=== PATIENT | male | born 1995 | race American Indian/Alaskan Native ===

== ENCOUNTER 2016-04-13 16:42 | Emergency (ER) | payer SELFPAY ==
[2016-04-13] MEDS ORDERED: TYLENOL #3 PO ONE (19:40)
[2016-04-13] MEDS ORDERED: XYLOCAINE 2% INFILTRATI ONE (19:42)
--- NOTE | 2016-04-13 19:45 | Emergency Department Report ---
- General Chief Complaint: Laceration/Recheck/Suture Stated Complaint: 2 IN LAC R FOREARM/SUTURE NEEDED Time Seen by Provider: 04/13/16 19:36 Source: patient Mode of arrival: Ambulatory Limitations: No Limitations - History of Present Illness Initial Comments: 20-year-old male who presents to ED complaining of arm pain secondary to laceration. Patient states he was jumping over a chain link fence, got caught and fell and sustained some lacerations his right arm as well as his right index finger. Patient states this incident happened about 4 hours ago. Patient states ambulance dressed the wound to stop the bleeding. He states he is up to date on his tetanus. Patient states he had a similar laceration on his abdomen earlier this year. Patient denies any fever/chills/nausea/vomiting/any other problems Extremity Location: Right: Arm Place: home Patient Tetanus UTD: Yes - Related Data Previous Rx's Medication Instructions Recorded Last Taken Type Cephalexin [Keflex] 500 mg PO Q8HR #20 cap 04/13/16 Unknown Rx Ibuprofen [Motrin 800 MG tab] 800 mg PO Q8HR #30 tablet 04/13/16 Unknown Rx Neomycn/Baci Zn/Pmyx Bs/Pramox 1 applic TP TID #1 tube 04/13/16 Unknown Rx [Triple Antibiotic Plus Ointmnt] Allergies Allergy/AdvReac Type Severity Reaction Status Date / Time Ants AdvReac Swelling Uncoded 04/13/16 19:18 ED Review of Systems ROS: Stated complaint: 2 IN LAC R FOREARM/SUTURE NEEDED Other details as noted in HPI Constitutional: denies: chills, fever Eyes: denies: eye pain, eye discharge, vision change ENT: denies: ear pain, throat pain, dental pain, hearing loss, congestion Respiratory: denies: cough, shortness of breath, wheezing Cardiovascular: denies: chest pain, palpitations Endocrine: no symptoms reported Gastrointestinal: denies: abdominal pain, nausea, vomiting, diarrhea Genitourinary: denies: urgency, dysuria, frequency Musculoskeletal: denies: back pain, joint swelling, arthralgia, myalgia Skin: other (laceration on the right lower arm and third finger). denies: rash , lesions Neurological: denies: headache, weakness, numbness, paresthesias, confusion, abnormal gait Psychiatric: denies: anxiety, depression Hematological/Lymphatic: denies: easy bleeding, easy bruising ED Past Medical Hx - Past Medical History Previous Medical History?: No - Surgical History Past Surgical History?: No - Social History Smoking Status: Current Some Day Smoker Substance Use Type: None, Alcohol - Medications Home Medications: Home Medications Medication Instructions Recorded Confirmed Last Taken Type Cephalexin [Keflex] 500 mg PO Q8HR #20 cap 04/13/16 Unknown Rx Ibuprofen [Motrin 800 MG tab] 800 mg PO Q8HR #30 tablet 04/13/16 Unknown Rx Neomycn/Baci Zn/Pmyx Bs/Pramox 1 applic TP TID #1 tube 04/13/16 Unknown Rx [Triple Antibiotic Plus Ointmnt] ED Physical Exam - General Limitations: No Limitations General appearance: alert, in no apparent distress - Head Head exam: Present: atraumatic, normocephalic - Eye Eye exam: Present: normal appearance, PERRL, EOMI - ENT ENT exam: Present: mucous membranes moist - Neck Neck exam: Present: normal inspection - Respiratory Respiratory exam: Present: normal lung sounds bilaterally. Absent: respiratory distress, wheezes, rales, rhonchi - Cardiovascular Cardiovascular Exam: Present: regular rate, normal rhythm. Absent: systolic murmur, diastolic murmur, rubs, gallop - GI/Abdominal GI/Abdominal exam: Present: soft, normal bowel sounds. Absent: distended, tenderness, guarding, rebound - Rectal Rectal exam: Present: deferred - Extremities Exam Extremities exam: Present: normal inspection - Back Exam Back exam: Present: normal inspection, full ROM. Absent: tenderness, CVA tenderness (R), CVA tenderness (L) - Neurological Exam Neurological exam: Present: alert, oriented X3, CN II-XII intact, normal gait, reflexes normal. Absent: motor sensory deficit - Psychiatric Psychiatric exam: Present: normal affect, normal mood - Skin Skin exam: Present: warm, dry, normal color, other (laceration to right anterior arm medially). Absent: rash, erythema, urticaria, vesicles - Expanded Skin Exam Expanded Type of lesion: Present: laceration (10 cm linear laceration). Absent: foreign body ED Course Vital Signs 04/13/16 17:13 Temperature 98.4 F Pulse Rate 76 Respiratory 16 Rate Blood Pressure 143/75 O2 Sat by Pulse 98 Oximetry - Laceration /Wound Repair Right Lower Anterior Medial Proximal Arm Wound Location: upper extremity (right anterior arm) Wound Length (cm): 10 Wound's Depth, Shape: into muscle, linear Wound Explored: no foreign body removed Irrigated w/ Saline (ccs): 500 Betadine Prep?: Yes Anesthesia: 1% Lidocaine Volume Anesthetic (ccs): 10 Wound Repaired With: sutures Suture Size/Type: 4:0, nylon Number of Sutures: 7 (horizontal mattress sutures) Layer Closure?: No Sterile Dressing Applied?: Yes Right Anterior Distal Palm Finger Wound Location: upper extremity (right anterior index finger) Wound Length (cm): 2 Wound's Depth, Shape: superficial, linear Wound Explored: no foreign body removed Irrigated w/ Saline (ccs): 300 Betadine Prep?: Yes Anesthesia: 1% Lidocaine Volume Anesthetic (ccs): 6 Wound Repaired With: sutures Suture Size/Type: 5:0, proline Number of Sutures: 8 Layer Closure?: No Sterile Dressing Applied?: Yes ED Medical Decision Making - Medical Decision Making 1-year-old male presents with multiple laceration to R arm and index finger. Vital signs stable. Patient alert and oriented 3 in no distress ED Course: Patient received 2 tablets of Tylenol 3. No TD booster was administered a tetanus patient states he is up-to-date ARM: The wound was prepped and draped in sterile fashion. Anesthesia was achieved with 10 mL of 2% lidocaine. The wound was irrigated with 500cc NS and explored. There were no foreign bodies. The wound was reapproximated in 1 layer suing with 5-0 monofilament sutures in the dermis with horizontal mattress sutures percutaneously. There was excellent reapproximation of the wound edges. INDEX FINGER:The wound was prepped and draped in sterile fashion. Anesthesia was achieved with 6 mL of 2% lidocaine using a digital block. The wound was irrigated with 300cc NS and explored. There were no foreign bodies. The wound was reapproximated in 1 layer suing with 5-0 monofilament sutures in the dermis with 7 interrupted sutures percutaneously. The patient tolerated the procedure without complication. Antibiotics prescription given. Discussed to take antibiotics as prescribed. Discussed to take Motrin as needed for pain. Discussed to follow up with primary care physician. Discussed to return to ED or primary care physician for removal of some stitches in 10-14 days. Critical care attestation.: If time is entered above; I have spent that time in minutes in the direct care of this critically ill patient, excluding procedure time. ED Disposition Clinical Impression: Laceration of arm, right, multiple sites Disposition: DISCHARGED TO HOME OR SELFCARE Is pt being admited?: No Does the pt Need Aspirin: No Condition: Stable Instructions: Suture Care (ED), Laceration (ED), Finger Laceration (ED) Additional Instructions: Return to clinic or ED in 10-14 days for suture removal Prescriptions: Cephalexin [Keflex] 500 mg PO Q8HR #20 cap Ibuprofen [Motrin 800 MG tab] 800 mg PO Q8HR #30 tablet Neomycn/Baci Zn/Pmyx Bs/Pramox [Triple Antibiotic Plus Ointmnt] 1 applic TP TID #1 tube Referrals: PRIMARY CARE, [Primary Care Provider] - [facility] - 3-5 Days [facility] [Outside] - 3-5 Days [facility] [Outside] - 3-5 Days [facility] [Outside] - 3-5 Days Forms: Work/School Release Form(ED) Time of Disposition: 22:10
[2016-04-13] MEDS ORDERED: NACL 0.9% IR ONE ×2 (20:00→20:37)
[2016-04-13] MEDS ORDERED: NACL 0.9% 500 ML IRRIGATION ONE (20:00)
[2016-04-13] MEDS ORDERED: NACL 0.9% 500 ML IR ONE ×2 (20:06→20:26)
[2016-04-13] MEDS ORDERED: TRIPLE ANTIBIOTIC TP ONE (21:15)
[2016-04-13 22:37] VITALS: BP 103/69
== END 2016-04-13 22:12 | disposition home or self-care (01) ==
LOC: ED 16:42
DX: S41.111A Laceration without foreign body of right upper arm, initial encounter (principal); S61.210A Laceration without foreign body of right index finger without damage to nail, initial encounter; F17.200 Nicotine dependence, unspecified, uncomplicated; Z91.09 Other allergy status, other than to drugs and biological substances; W45.8XXA Other foreign body or object entering through skin, initial encounter; Y93.89 Activity, other specified; Y99.8 Other external cause status; Y92.89 Other specified places as the place of occurrence of the external cause
CPT/HCPCS: A6250